=== PATIENT | female | born 2000 | race Caucasian/White ===

== ENCOUNTER 2020-09-22 12:14 | Emergency (ER) | payer SELFPAY ==
[~2020-09-22] VITALS: Ht 167.6 cm; Wt 56.7 kg
[2020-09-22 12:26] VITALS: BP 107/87
--- NOTE | 2020-09-22 13:51 | NUR ---
PT TAKEN TO BED 6.
--- NOTE | 2020-09-22 14:00 | NUR ---
PT BIB MOTHER C/O LOWER ABDOMINAL PAIN, NAUSEA, AND VOMITING S/P TAKING 4 PILLS OF MISOPROSTOL TODAY. PT REPORTS LMP: END OF JUL 2020 AND APPROX 9 WEEKS . REPORTS SCANT VAGINAL BLEEDING X TODAY. PT REPORTS . PMH: DENIES
[2020-09-22] MEDS ORDERED: KETOROLAC 60 MG/2 ML VIAL IM ONE (14:05)
[2020-09-22 16:48] VITALS: BP 130/87
--- NOTE | 2020-09-22 16:49 | NUR ---
Patient discharged with v/s stable. Written and verbal after care instructions given and explained. Patient alert, oriented and verbalized understanding of instructions. Ambulatory with steady gait. All questions addressed prior to discharge. ID band removed. Patient advised to follow up with PMD. Rx of MOTRIN, ZOFRAN, NORCO given. Patient educated on indication of medication including possible reaction and side effects. Opportunity to ask questions provided and answered.
== END 2020-09-22 16:49 | disposition home or self-care (01) ==
LOC: MED 12:14
DX: R10.31 Right lower quadrant pain (principal)
CPT/HCPCS: 81002; 81025; 96372; 99283; J1885